=== PATIENT | male | born 1985 | race Caucasian/White ===

== ENCOUNTER → 2019-10-09 | Outpatient (CLI) | payer OTHER ==
--- NOTE | 2019-10-09 15:18 | Diagnostic Imaging Report ---
TECHNIQUE: Magnetic resonance imaging of the RIGHT SHOULDER was performed WITHOUT injected contrast. COMPARISON: None available. HISTORY: Right shoulder pain FINDINGS: MUSCLES AND TENDONS: Rotator Cuff: Tendons: Intact Muscles: No focal muscle atrophy. Biceps Tendon: The long head of the biceps tendon is intact and within the intertubercular groove. GLENOHUMERAL JOINT: Glenoid Labrum: None displaced superior labral tear. Articular Cartilage: No focal defect. AC JOINT AND ACROMION: Mild hypertrophic degenerative changes of the acromioclavicular joint with subchondral edema. The acromion is unremarkable. BONE: No acute fracture. SOFT TISSUES: Otherwise, the soft tissues appear unremarkable. IMPRESSION: 1. Intact rotator cuff 2. Nondisplaced superior labral tear 3. Mild acromioclavicular arthrosis with reactive edema Signed by: Dr. Kamron Asif M.D. on 10/09/2019 3:15 PM
== END ==
LOC: MRI 13:54
PROVIDERS: ATTEND Family Medicine
DX: M75.101 Unspecified rotator cuff tear or rupture of right shoulder, not specified as traumatic (principal)